=== PATIENT | female | born 2005 | race Caucasian/White ===

== ENCOUNTER 2023-11-12 02:17 | Emergency (ER) | payer OTHER, SELFPAY ==
--- NOTE | ~2023-11-12 | CT_ITS ---
CT of the Abdomen and Pelvis: Indication: Abdominal pain Technique: 2.5 mm axial scans were obtained through the abdomen and pelvis following intravenous adm inistration of 100 cc of Omnipaque 350. Dose reduction technique was used on this scan by utilizing a utomated exposure control and iterative reconstruction technique. The dose-length product (DLP) was 5 96.16 mGy-cm. Findings: Scans through the lung bases are unremarkable. The liver, spleen, pancreas, gallbladder, adrenals and kidneys are within normal limits. No evidence of aortic aneurysm. No lymphadenopathy. No bowel obstruction or bowel wall thickening. There is no evidence to suggest acute appendicitis. Images through the pelvis were performed. Urinary bladder unremarkable. IUD in place. No adnexal mass seen. No ascites. Impression: IUD in place, otherwise unremarkable exam. Reviewed, dictated and finalized at location . Impression: IUD in place, otherwise unremarkable exam.
[2023-11-12 02:23] VITALS: BP 124/77; PULSE 133; RESP 20; TEMP 36.4; O2SAT 99
[2023-11-12 02:46] LABS: Appearance Urine Clear (Clear); Bacteria Urine None Seen /hpf; Bilirubin Urine Negative (Negative); Blood Urine Negative (Negative); Color Urine Yellow (Yellow); Glucose Urine UA Negative (Negative); Ketones Urine 1+ mg/dL (Negative); Leukocyte Esterase Ur Trace LEU/UL (Negative); Nitrate Urine Negative (Negative); Non Pathogenic Casts 0-2; Protein Urine Negative (Negative); RBC Urine 0-2 /hpf (0-2); Specific Grav Ur 1.016 (1.001-1.035); Squamous Epithelial Cell Urine Occasional /hpf (Few); Urobilinogen Urine 0.2 mg/dL (<2.0); pH Urine 5.5 (5.0-9.0)
[2023-11-12 02:49] VITALS: BP 121/73; PULSE 105; RESP 16; O2SAT 100
[2023-11-12 02:56] LABS: Add Urine Microscopic? YES
[2023-11-12 02:57] LABS: Basophils Percent Auto 0.2 % (0.2-1.2); Eosinophils Percent Auto 0.1 % (0-4.4); Hemoglobin 13.5 g/dL (12.0-15.0); Immature Granulocyte Absolute 0.05 K/mm3 (0.00-0.031); Immature Granulocyte Percent A 0.5 % (0-0.5); Lymphocytes Absolute Auto 0.99 K/mm3 (0.9-3.2); Lymphocytes Percent Auto 9.2 % (18.3-44.2); Mean Corpuscular HGB Conc 33.8 g/dl (32-36); Mean Corpuscular Hemoglobin 29.8 pg (26-34); Mean Corpuscular Volume 88.3 fl (80-100); Mean Platelet Volume 10.6 fl (7.4-10.4); Monocytes Absolute Auto 0.6 K/mm3 (0.1-0.6); Monocytes Percent Auto 5.3 % (2.6-8.5); Neutrophils Absolute Auto 9.1 K/mm3 (1.3-6.7); Neutrophils Percent Auto 84.7 % (45.5-73.1); Platelet Count Result 248 k/mm3 (150-375); Red Blood Count 4.53 M/mm3 (4.2-5.4); Red Cell Distribution Width 11.7 % (11.5-14.5); White Blood Count 10.8 K/mm3 (4.5-10.0)
[2023-11-12] MEDS: ONDANSETRON INJ 4 MG/2 ML VIAL IV PUSH (03:01)
[2023-11-12] MEDS: SODIUM CHLORIDE 0.9% IV 1,000 ML 999 ML IV CONT (03:01)
[2023-11-12 03:13] LABS: Alanine Aminotransferase 27 U/L (6-35); Albumin Level 4.1 g/dL (3.5-5.1); Alkaline Phosphatase 72 U/L (38-126); Anion Gap 7 mmol/L (8-16); Aspartate Amino Transferase 26 U/L (14-36); Bilirubin,Total 0.8 mg/dL (0.2-1.3); Blood Urea Nitrogen 11 mg/dL (7-17); Calcium 8.8 mg/dL (8.4-10.2); Carbon Dioxide 26 mmol/L (22-30); Chloride 100 mmol/L (98-107); Estimated CRCL calculation 95 ml/min; Estimated Glomerular Filt Rate > 60; Glucose 97 mg/dL (65-110); Lipase 31 U/L (23-300); Potassium 3.1 mmol/L (3.4-5.0); Sodium 133 mmol/L (137-145)
--- NOTE | 2023-11-12 04:04 | ED.GENADULT ---
HPI - General Adult General Chief complaint: Abdominal Pain Stated complaint: Body aches, abd pain, back pain, n/v Time Seen by Provider: 11/12/23 02:38 History of Present Illness HPI narrative: Patient 18-year-old female who presents emergency department with chief complaint of abdominal pain nausea vomiting diarrhea. Patient reports that her boyfriend had similar symptoms about a week ago patient states she has stomach aching and reports that she has had multiple bouts of vomiting and multiple bouts of diarrhea. Patient reports no prior surgical history reports her last menstrual period was about a month ago. Related Data Allergies Allergy/AdvReac Type Severity Reaction Status Date / Time amoxicillin Allergy Other Verified 11/12/23 02:26 Review of Systems Review of Systems: A 10 system review of systems was completed on the patient and is negative except for what is stated in the HPI. Nursing and ancillary documentation was reviewed. Exam Narrative: GENERAL: Well-appearing, well-nourished, and in no acute distress. HEAD: Normocephalic, atraumatic. EYES: PERRLA and EOMI. ENT: Nares clear, no rhinorrhea or epistaxis. Mucous membranes moist. NECK: Supple. CHEST: Clear to auscultation. No respiratory distress. HEART: Regular rate and rhythm. No murmur heard. Normal peripheral pulses. ABDOMEN: Soft, diffusely tender to palpation, nondistended, normal active bowel sounds. EXTREMITIES: Normal range of motion. No edema. SKIN: Warm, dry, no rash. NEURO: No focal deficits. Alert and oriented x3. PSYCH: Normal mood and affect. Course Vital Signs Vital signs: Vital Signs Temperature 36.4 C L 11/12/23 02:23 Pulse Rate 133 H 11/12/23 02:23 Respiratory Rate 20 11/12/23 02:23 Blood Pressure 124/77 11/12/23 02:23 Pulse Oximetry 99 11/12/23 02:23 Oxygen Delivery Room Air 11/12/23 02:23 Temperature 36.4 C L 11/12/23 02:23 Pulse Rate 100 11/12/23 04:39 Respiratory Rate 15 11/12/23 04:39 Blood Pressure 124/82 11/12/23 04:39 Pulse Oximetry 100 11/12/23 04:39 Oxygen Delivery Room Air 11/12/23 02:23 Medical Decision Making MDM Narrative Medical decision making narrative: Differential diagnosis includes gastroenteritis, appendicitis, cholecystitis, pancreatitis Patient received IV fluids antiemetics. Laboratory studies showed white count 10.8 electrolytes were within normal limits potassium was little low at 3.1 urinalysis showed 1+ ketones and 6-[address] scan showed no evidence of appendicitis the IUD did do appear to have the right arm extending into the myometrium. The patient was informed of this and recommended to follow-up with her dam tender. Vital Signs Vital Signs: Vital Signs Temperature 36.4 C L 11/12/23 02:23 Pulse Rate 133 H 11/12/23 02:23 Respiratory Rate 20 11/12/23 02:23 Blood Pressure 124/77 11/12/23 02:23 Pulse Oximetry 99 11/12/23 02:23 Oxygen Delivery Room Air 11/12/23 02:23 Temperature 36.4 C L 11/12/23 02:23 Pulse Rate 100 11/12/23 04:39 Respiratory Rate 15 11/12/23 04:39 Blood Pressure 124/82 11/12/23 04:39 Pulse Oximetry 100 11/12/23 04:39 Oxygen Delivery Room Air 11/12/23 02:23 Lab Data 11/12/23 02:46 11/12/23 02:46 Labs: Lab Results 11/12/23 11/12/23 Range/Units 02:34 02:46 WBC 10.8 H (4.5-10.0) K/mm3 RBC 4.53 (4.2-5.4) M/mm3 Hgb 13.5 (12.0-15.0) g/dL Hct 40.0 (37.0-47.0) % MCV 88.3 (80-100) fl MCH 29.8 (26-34) pg MCHC 33.8 (32-36) g/dl RDW 11.7 (11.5-14.5) % Plt Count 248 (150-375) k/mm3 MPV 10.6 H (7.4-10.4) fl Immature Gran % (Auto) 0.5 (0-0.5) % Neut % (Auto) 84.7 H (45.5-73.1) % Lymph % (Auto) 9.2 L (18.3-44.2) % [place] % (Auto) 5.3 (2.6-8.5) % Eos % (Auto) 0.1 (0-4.4) % Baso % (Auto) 0.2 (0.2-1.2) % Lymph # (Auto) 0.99 (0.9-3.2) K/mm3 [place] # (Auto) 0.6
[2023-11-12 04:39] VITALS: BP 124/82; PULSE 100; RESP 15; O2SAT 100
== END 2023-11-12 06:14 | disposition home or self-care (01) ==
PROVIDERS: Emergency Provider Emergency Medicine
DX: K52.9 Noninfective gastroenteritis and colitis, unspecified (principal)
CPT/HCPCS: 36415; 74177; 80053; 81025; 83690; 85025; 87086; 96361; 96374; 99284; J2405; J7030; Q9967